=== PATIENT | female | born 1955 | race Caucasian/White ===

== ENCOUNTER 2019-08-25 13:55 | Day surgery (SDC) | payer BC, MEDICARE ==
[2019-08-25] MEDS ORDERED: Gentamicin ADULT (*) 120 MG in NS 0.9% 100 ML* 100 ML IVPB ONE (14:00)
[2019-08-25] MEDS ORDERED: cefTRIAXone(*) 2 GM ADDV.VIAL IVPB ONE (14:21)
[2019-08-25] MEDS ORDERED: DiMENhydriNATE IV* 50 MG/ML VIAL IV PUSH PRN (15:55)
[2019-08-25] MEDS ORDERED: Naloxone* 0.4 MG/ML 1 ML VIAL IV PRN (15:55)
[2019-08-25] MEDS ORDERED: Buffered Lidocaine 1% SYRIN* 1 ML/SYRINGE INTRADERM ONE (15:55)
[2019-08-25] MEDS ORDERED: fentaNYL* 50 MCG/ML 2 ML VIAL (100 MCG VIAL) IV PRN (15:55)
[2019-08-25] MEDS ORDERED: Dexamethasone IV* 4 MG/ML 1 ML (4 MG) IV SLOW PU ONE (15:55)
[2019-08-25] MEDS ORDERED: oxyCODONE/Acetamin 5/325 MG* TAB PO PRN (15:55)
[2019-08-25] MEDS ORDERED: HYDROcodone/ACETAMIN 5-325 MG* 1 TAB PO PRN (15:55)
[2019-08-25] MEDS ORDERED: Famotidine IV* 10 MG/ML 2 ML (20 mg) IV ONE (15:55)
[2019-08-25] MEDS ORDERED: Lactated Ringers 1000 ML Bag* 1,000 ML IV SCH (16:00)
[2019-08-25] MEDS ORDERED: Dexamethasone IV* 4 MG/ML 1 ML (4 MG) ONE (16:30)
[2019-08-25] MEDS ORDERED: Famotidine IV* 10 MG/ML 2 ML (20 mg) ONE (16:30)
[2019-08-25] MEDS ORDERED: fentaNYL* 50 MCG/ML 2 ML VIAL (100 MCG VIAL) ONE (16:33)
[2019-08-25] MEDS ORDERED: Propofol* 10 MG/ML 20 ML BTL ONE (16:33)
[2019-08-25] MEDS ORDERED: Lidocaine 2% PF * 5 ML VIAL ONE (16:33)
--- NOTE | 2019-08-25 16:34 | HP ---
CC: Dr. Aguilar; Dr. Evrin Baer ADMITTING HISTORY AND PHYSICAL: DATE OF ADMISSION: 08/25/19 ADMITTING DIAGNOSES: 1. Obstructing calculus, right proximal ureter. 2. Right hydronephrosis. PLANNED PROCEDURE: Right stent insertion and possible ureteroscopy (likely to be followed in near [facility] by shockwave lithotripsy). SURGEON: Dr. Ervin Baer. HISTORY OF PRESENT ILLNESS: Radha Rodriguez is a 63-year-old lady who had presented to the [facility] Room over the weekend with right flank pain, nausea, and vomiting. CT scan revealed an approxi mately 5 mm calculus in the proximal right ureter with severe right hydronephrosis. She continues to have fairly severe pain and is now being brought in for urgent right stent insertion, possible urete roscopy. Because of the proximal location of the calculus, I have explained to her that she may requ zaida a 2-stage procedure with initial stent insertion to be followed at a later stage by shockwave lit hotripsy. PAST MEDICAL HISTORY: Significant for: 1. Hypertension. 2. High cholesterol. PAST SURGICAL HISTORY: Significant for tonsillectomy. MEDICATIONS: On admission: 1. Lisinopril 10 mg daily. 2. Pravastatin 40 mg daily. 3. Aspirin 81 mg daily. ALLERGIES: No known drug allergies (gets yeast infection from penicillin. This is not an allergy). FAMILY HISTORY: Negative for stones. SOCIAL HISTORY: Smoking History: She is a former smoker who quit 20 years ago and has a 30-pack-yea r smoking history prior to that. REVIEW OF SYSTEMS: She is, otherwise, in excellent health. There is no history of diabetes mellitus or any other major systemic illness. She denies any chest pain or shortness of breath. PHYSICAL EXAMINATION GENERAL: Reveals a pleasant uncomfortable-appearing middle-aged lady. VITAL SIGNS: Blood pressure is 120/76, pulse 98 per minute and regular, temperature 96.3, oxygen sat uration 97% on room air. LUNGS: Clear bilaterally. CARDIOVASCULAR EXAM: Regular rate and rhythm. S1, S2. ABDOMEN: Soft with right flank tenderness. IMPRESSION: I reviewed the CT and discussed the management options with Mrs. Rodriguez in detail. I ga ve her the option of trying to wait and see if she could pass the calculus, but because of the severi ty of pain she would like to go ahead and proceed with urgent right stent insertion. PLAN/RECOMMENDATIONS: Right stent insertion, possible ureteroscopy (possibly to be followed in the n ear future by lithotripsy). [id number]/[facility] #: [id number]
[2019-08-25] MEDS ORDERED: Iohexol 180 (CONTRAST) 10 ML SDV IV ONE (16:48)
[2019-08-25] MEDS ORDERED: Ondansetron INJ* 2 MG/ML VIAL ONE (17:20)
[2019-08-25] MEDS ORDERED: EPHEDrine (Pressors)* 50 MG/ML VIAL ONE (17:21)
[2019-08-25 18:22] VITALS: BP 133/79
--- NOTE | 2019-08-26 06:28 | OP ---
CC: Dr. Aguilar; Dr. Baer* OPERATIVE SUMMARY: DATE OF OPERATION: 08/25/19 - [facility] DATE OF : 51 SURGEON: Dr. Baer. ANESTHESIOLOGIST: Dr. Dee. ANESTHESIA: General. PRE-OP DIAGNOSES: 1. Right hydronephrosis. 2. Calculus right proximal ureter. POST-OP DIAGNOSES: 1. Right hydronephrosis. 2. Calculus right proximal ureter. SURGICAL PROCEDURE: Cystoscopy, right retrograde pyelogram, right ureteral calculus manipulation, and right stent insertion. COMPLICATIONS: None. STENT USED: A 7-Icelandic stent, right ureter. POSTOPERATIVE CONDITION: Stable. OPERATIVE FINDINGS: Obstructing calculus, right proximal ureter leading to right hydronephrosis. INDICATIONS: Radha Rodriguez is a 63-year-old lady who was evaluated because of severe right flank pain secondary to an obstructing calculus in the right proximal ureter. She is being brought in for urgent right stent insertion to be followed at some point in the near future by lithotripsy. DESCRIPTION OF PROCEDURE: After induction of general anesthesia, the patient was placed in dorsal lithotomy position. Sequential compression devices were in place and functioning. Initial cystoscopy revealed normal appearing bladder with clear efflux noted from the left orifice. There was no efflux noted from the right orifice suggesting a complete obstruction. A guidewire was introduced into the right ureter under fluoroscopic monitoring. The calculus could be visualized in the proximal ureter and using a combination of the guidewire and open-ended catheter, the calculus was carefully manipulated proximally. Once this was done and the retrograde pyelogram completed, a 7-Icelandic stent was then introduced and positioned under fluoroscopy with good proximal and distal positioning obtained. The bladder was emptied. The patient tolerated the procedure satisfactorily and was transferred back to the recovery area in stable condition. [id number]/[facility] #: [id number] [facility]
== END 2019-08-25 18:22 | disposition home or self-care (01) ==
LOC: OR 13:55
PROVIDERS: ATTEND Urology
PROC: 0T9680Z Drainage of Right Ureter with Drainage Device, Via Natural or Artificial Opening Endoscopic (ICD-10-PCS; 2019-08-25)
PROC: BT1DYZZ Fluoroscopy of Right Kidney, Ureter and Bladder using Other Contrast (ICD-10-PCS; principal; 2019-08-25 15:30)
DX: N13.2 Hydronephrosis with renal and ureteral calculous obstruction (principal); I10 Essential (primary) hypertension; E78.00 Pure hypercholesterolemia, unspecified; Z79.82 Long term (current) use of aspirin; Z87.891 Personal history of nicotine dependence
CPT/HCPCS: 74018; 74420; C1876; J0696; J1100; J1580; J2405; J2704; J3010

== ENCOUNTER 2019-09-08 07:13 | Day surgery (SDC) | payer BC, MEDICARE ==
[~2019-09-08 07:13] MED LIST: Buffered Lidocaine 1% SYRIN* 1 ML/SYRINGE INTRADERM ONE; Dexamethasone IV* 4 MG/ML 1 ML (4 MG) IV SLOW PU ONE; Famotidine IV* 10 MG/ML 2 ML (20 mg) IV ONE; Lactated Ringers 1000 ML Bag* 1,000 ML IV SCH
[2019-09-08] MEDS ORDERED: cefTRIAXone(*) 2 GM ADDV.VIAL IVPB ONE (08:34)
[2019-09-08] MEDS ORDERED: Dexamethasone IV* 4 MG/ML 1 ML (4 MG) ONE (08:34)
[2019-09-08] MEDS ORDERED: Famotidine IV* 10 MG/ML 2 ML (20 mg) ONE (08:35)
[2019-09-08] MEDS ORDERED: fentaNYL* 50 MCG/ML 2 ML VIAL (100 MCG VIAL) ONE (09:32)
[2019-09-08] MEDS ORDERED: Lidocaine 2% PF * 5 ML VIAL ONE (09:33)
[2019-09-08 11:38] VITALS: BP 146/90
--- NOTE | 2019-09-08 15:06 | OP ---
CC: Dr. Robb Aguilar * DATE OF OPERATION: 09/08/19 - [facility] DATE OF : 51 SURGEON: Ervin Baer MD. ANESTHESIOLOGIST: Dr. Epps. ANESTHESIA: General. PRE-OP DIAGNOSIS: Right renal calculus. POST-OP DIAGNOSIS: Right renal calculus. OPERATIVE PROCEDURE: Shockwave lithotripsy of right renal calculus. COMPLICATIONS: None. POSTOPERATIVE CONDITION: Stable. FINDINGS: Right renal calculus. INDICATIONS: Radha Rodriguez is a 63-year-old lady who had undergone urgent right stent insertion for an obstructing calculus in the right proximal ureter. She is now being brought in for shockwave lithotripsy. DESCRIPTION OF PROCEDURE: After induction of general anesthesia, the patient was placed on lithotripsy table in supine position. The calculus which was adjacent to the proximal coil of the right stent was visualized under fluoroscopy. Shockwave lithotripsy was commenced at a rate of 60 shocks per minute. After the initial 300 shocks, there was a pause in lithotripsy for several minutes in an effort to minimize any potential trauma to the kidney. Lithotripsy was then resumed and periodic imaging revealed good localization and fragmentation, and a total of 2000 shocks were administered. The patient tolerated the procedure satisfactorily and was transferred back to the recovery area in stable condition. [id number]/[facility] #: [id number] [facility]
== END 2019-09-08 11:48 | disposition home or self-care (01) ==
LOC: OR 07:13
PROVIDERS: ATTEND Urology
DX: N20.0 Calculus of kidney (principal); I10 Essential (primary) hypertension; M51.36 Other intervertebral disc degeneration, lumbar region; I69.954 Hemiplegia and hemiparesis following unspecified cerebrovascular disease affecting left non-dominant side; Z96.0 Presence of urogenital implants; Z87.891 Personal history of nicotine dependence
CPT/HCPCS: 74018; J0696; J1100; J3010